=== PATIENT | female | born 1980 | race Caucasian/White ===

== ENCOUNTER 2021-01-01 20:00 | Emergency (ER) | payer OTHER ==
[~2021-01-01] VITALS: Ht 162.6 cm; Wt 67.1 kg
== END 2021-01-01 22:54 | disposition home or self-care (01) ==
LOC: ER 20:00
DX: S01.81XA Laceration without foreign body of other part of head, initial encounter (principal); W01.198A Fall on same level from slipping, tripping and stumbling with subsequent striking against other object, initial encounter; Y93.89 Activity, other specified; Y92.89 Other specified places as the place of occurrence of the external cause; Y99.8 Other external cause status